=== PATIENT | male | born 1965 | race African-American/Black ===

== ENCOUNTER 2018-10-05 05:51 | Emergency (ER) | payer SELFPAY ==
[~2018-10-05] VITALS: Ht 172.7 cm; Wt 73.0 kg
[2018-10-05] MEDS ORDERED: MORPHINE SULFATE 4 MG/ML CPJ (NOT FOR IM USE) IV STA (06:43)
[2018-10-05] MEDS ORDERED: SODIUM CHLORIDE 0.9% 1,000 ML IV ONE (06:43)
[2018-10-05 07:51] LABS: CHLORIDE 105 mEq/L (98-107)
[2018-10-05 10:26] VITALS: BP 125/69
[2018-10-05] MEDS ORDERED: TETANUS, DIPHTHERIA, PERTUSSIS VAC/PF 0.5ML (>7YR OLD) IM ONE (11:00)
[2018-10-05] MEDS ORDERED: SILVER SULFADIAZINE 1% CREAM 25GM TOP ONE (11:45)
== END 2018-10-05 12:15 | disposition home or self-care (01) ==
LOC: ER 05:51
DX: T25.222A Burn of second degree of left foot, initial encounter (principal); T20.16XA Burn of first degree of forehead and cheek, initial encounter; T23.202A Burn of second degree of left hand, unspecified site, initial encounter; T31.0 Burns involving less than 10% of body surface; X08.8XXA Exposure to other specified smoke, fire and flames, initial encounter; Y93.89 Activity, other specified; Y92.89 Other specified places as the place of occurrence of the external cause; Y99.8 Other external cause status
CPT/HCPCS: 16020; 36415; 80053; 90471; 90715; 96374; 99284; J2270; J7030